=== PATIENT | male | born 1960 | race Caucasian/White ===

== ENCOUNTER 2019-12-23 05:57 | Day surgery (SDC) | payer OTHER ==
[~2019-12-23] VITALS: Ht 180.3 cm; Wt 115.7 kg
[~2019-12-23 05:57] MED LIST: GLUCOPHAGE500 MG PO; LIPITOR20 MG PO; LISINOPRIL2.5 MG PO; NOVALOG PUMP SQ; TIROSINT75 MCG PO
[2019-12-23 06:25] LABS: BASOPHILS 0.5 % (0-2); EOSINOPHILS 3.3 % (0-7); HEMATOCRIT 40.4 % (42.0-54.0); HEMOGLOBIN 13.7 g/dL (13.5-17.5); IMMATURE GRANULOCYTES 0.2 % (0-5); LYMPHOCYTES 22.6 % (15-50); MCH 30.6 pg (26.0-34.0); MCHC 33.9 g/dL (31.0-37.0); MCV 90.4 fL (80.0-100.0); MEAN PLATELET VOLUME 9.2 fL (7.4-10.4); MONOCYTES 9.8 % (2-11); NEUTROPHILS 63.6 % (40-80); PLATELET COUNT 193 10x3/uL (130-400); RBC 4.47 10x6/uL (4.20-6.10); RDW 12.5 % (11.5-14.5); WBC 5.5 10x3/uL (4.8-10.8)
[2019-12-23 06:50] LABS: CALC OSMOLALITY 286 mosm/kg (275-300); CALCIUM 8.9 mg/dL (8.5-10.1); CHLORIDE - SERUM 102 mmol/L (98-107); CREATININE - SERUM 0.9 mg/dL (0.6-1.3); GLUCOSE 317 mg/dL (74-106); POTASSIUM - SERUM 5.1 mmol/L (3.5-5.1); SODIUM 137 mmol/L (136-145); UREA NITROGEN 14 mg/dL (7-18); eGFR NON AFRICAN AMERICAN > 90 mL/min (90-120)
[2019-12-23] MEDS ORDERED: LISINOPRIL2.5 MG PO (07:17)
[2019-12-23 07:25] VITALS: BP 140/79; Ht 180.3 cm; Wt 115.7 kg
--- NOTE | 2019-12-23 07:38 | NUR ---
0735-NOTIFIED ANTHONY IN SURGERY. H&P NEEDS UPDATED
--- NOTE | 2019-12-23 07:39 | NUR ---
0738-NOTIFIED DR. ANGULO VIA PHONE H&P NEEDS UPDATED
--- NOTE | 2019-12-23 08:01 | NUR ---
0800-NOTIFIED LILIANA FROM ANESTHESIA REGARDING BLOOD GLUCOSE OF 317. PT REPORTS HE GAVE HIMSELF 3.9 UNITS OF NOVOLOG VIA INSULIN PUMP AT 0713. NO FURTHER ORDERS PER LILIANA THEY WILL RE-CHECK BLOOD SUGAR WHEN PT GETS WITH THEM IN HOLDING
--- NOTE | 2019-12-23 09:44 | NUR ---
PTS GLASSES AND INSULIN PUMP REGULATOR PLACED IN LABELED BAG IN HOLDING AND PLACED IN PTS CHART PER HOWARD PRIOR TO START OF SURGERY. PTS HEARING AID IN RIGHT EAR LEFT IN PLACE.
[2019-12-23] MEDS ORDERED: HYDROCODON-ACE1 EA10 PO (10:10)
--- NOTE | 2019-12-23 20:59 | OP ---
PATIENT NAME: TRINI KUO MEDICAL RECORD: [id number] :58 LOCATION:[facility] ADMISSION DATE: SURGEON: SASCHA ANGULO MD DATE OF OPERATION: 12/23/2019 PREOPERATIVE DIAGNOSES: 1. Ventral abdominal hernia. 2. Diabetes mellitus. 3. Hypertension. POSTOPERATIVE DIAGNOSES: 1. Ventral hernia times 2. 2. Diabetes mellitus. 3. Hypertension. PROCEDURE: Ventral hernia repair times 2 without mesh. SURGEON: Sascha Angulo MD REPORT OF PROCEDURE: The patient's abdomen was prepped and draped in sterile fashion. A semicircular incision was made on the inferior aspect of the umbilicus. Electrocautery was used to dissect through the subcutaneous tissues to the base of the umbilicus. The patient's umbilicus was elevated and a hernia sac was encountered. We were able to free up this hernia sac and push it back into the abdominal cavity. We freed up the fascial edges and could see this hernia defect, was about a 1 cm tall and about 1.5 cm to wide. I was able to free up the fascial tissues using electrocautery and cleared up the fascial edges. When I penetrated through the hernia defect and palpated the remainder of the abdominal wall, I could feel there was another hernia defect just above the umbilicus. We then made a longitudinal incision in the midline overlying this hernia. Electrocautery was used to dissect through the subcutaneous tissues and we encountered a large hernia sac. This hernia sac was freed up at its base and eventually we had to transect the hernia sac and its fatty contents because they would not push back into the abdominal cavity. This hernia defect was freed up completely and the fascial edges were cleaned off using electrocautery. The defect was about a 0.5 cm tall and about 1.5 cm to wide. The fascial edges on both hernia defect appeared to be a strong and in good condition. We reapproximated both of these transversely using interrupted 0 Prolenes times 4. There was good approximation of the tissue and did not appear to be any tension. The wounds were then irrigated out thoroughly with normal saline. Any bleeding that was found was then treated with electrocautery. We tacked the umbilicus back down to the fascia using a single interrupted 3-0 Vicryl. The subcutaneous tissues were all reapproximated with interrupted 3-0 Vicryl and infused with a total of 10 mL of 0.25% Marcaine plain. The skin incisions were closed with subcutaneous running 5-0 Monocryl and dressed appropriately. COMPLICATIONS: None. CONDITION: Stable. ANESTHESIA: General endotracheal and local. BLOOD LOSS: Minimal. OPERATIVE REPORT [id number] TRINI KUO TRANSINT:[id number] Voice Confirmation ID: [id number] DOCUMENT ID: [id number] SASCHA ANGULO MD at 2059 CC: MOISE RIVAS [id number] DICTATION DATE: 12/23/19 1018 [facility] ELECTROLYTIC: 12/23/19 1309 [facility] 12/23/19 [facility] [address] [place] [address]
== END 2019-12-23 12:35 | disposition home or self-care (01) ==
LOC: D.OPS 05:57 → EDBD 08:15 → D.OPS 08:15
PROVIDERS: ATTEND Surgery
DX: K43.9 Ventral hernia without obstruction or gangrene (principal); E11.9 Type 2 diabetes mellitus without complications; I10 Essential (primary) hypertension; Z79.84 Long term (current) use of oral hypoglycemic drugs

== ENCOUNTER → 2020-04-10 08:27 | Outpatient (CLI) | payer OTHER ==
[2019-12-23 07:25] VITALS: BMI 35.6
[~2020-04-10 08:27] MED LIST changes: +HYDROCODON-ACE1 EA10 PO
== END | disposition home or self-care (01) ==
LOC: D.CT 08:27
PROVIDERS: ATTEND Emergency Medicine
DX: I71.9 Aortic aneurysm of unspecified site, without rupture (principal); E03.9 Hypothyroidism, unspecified; E10.9 Type 1 diabetes mellitus without complications; Z79.4 Long term (current) use of insulin; I10 Essential (primary) hypertension